=== PATIENT | female | born 1945 | race Caucasian/White ===

== ENCOUNTER 2018-12-09 09:31 | Inpatient (IN) | payer MEDICARE, OTHER ==
[~2018-12-09] VITALS: Ht 150 cm; Wt 57.3 kg
[~2018-12-09 09:31] MED LIST: BACL10 PO; BUPR150ER PO; Bupropion HCl150 M2 PO; CLON1 PO; CLON2 PO; CONEST.625; CONEST.625 PO; DICL.1SO; DICY20 PO; Estrace Vagin42.5 GM VAG; FENT25TP TOP; FENTANYL; FURO20; FURO20 PO; FURO40 PO; GABA600 PO; IBUP800; LEVFLO500 PO; LYSINE; METF500; METF500 PO; NAPR220 PO; NAPR500 PO; OMEP10ER PO; OMEP20ER PO; OXYACE5T PO; OXYB5 PO; OXYC30; OXYC30 PO; OXYC5 PO; Omeprazole20 M1 PO; Oxybutynin Chlo10 MG PO; PAIN PUMP FENTANYL; POTA10T PO; POTCHL10ER; POTCHL10ER PO; PRED10 PO; PREG200 PO; SUDAGEST; Sudogest30 MG PO; VENL37.5 PO
[2018-12-10] MEDS ORDERED: PREG100 PO (09:45)
[2018-12-10] MEDS ORDERED: XVITE TABLET1 EACH PO (09:47)
[2018-12-10] MEDS ORDERED: CALCIUM CIT 311 EACH PO (09:47)
[2018-12-10] MEDS ORDERED: BIOTIN1 MG PO (09:48)
[2018-12-10] MEDS ORDERED: MELA3 PO (09:48)
[2018-12-10] MEDS ORDERED: SIME80CH PO (09:51)
[2018-12-10] MEDS ORDERED: L-Lysine500 M1 PO (09:52)
--- NOTE | 2018-12-10 10:05 | NUR ---
History, Chart, Medications and Allergies reviewed before start of procedure.Patient confirms NPO status and agrees with scheduled surgery. Patient reports completing Chlorhexadine shower X2 prior to admission to hospital.Surgical site prepped with 2% Chlorhexidine cloth wipe.
--- NOTE | 2018-12-10 10:16 | NUR ---
NOSIN NASAL SWABS DONE
--- NOTE | 2018-12-10 16:22 | NUR ---
PT ARRIVED TO THE UNIT AT APPROXIMATELY 1555. PT ALERT AND ORIENTED. PT REPORTED PAIN WELL MANAGED. FAMILY AT THE BEDSIDE. VSS. WILL CONTINUE TO MONITOR.
--- NOTE | 2018-12-10 19:45 | NUR ---
SHIFT SUMMARY PAIN MANAGED WITH TYLENOL AND TORADOL SINCE ARRIVAL TO THE UNIT. PT ALERT AND ORIENTED. PT IS A 1 PERSON MODERATE ASSIST WHEN OOB. PT HAS BEEN ABLE TO VOID POST-OP. VSS. REPORT GIVEN TO CARMINA XIONG.
[2018-12-11 04:17] LABS: BASOPHILS ABSOLUTE AUTO 0.02 K/mm3 (0.00-0.23); BASOPHILS PERCENT AUTO 0 % (0-2); EOSINOPHILS ABSOLUTE AUTO 0.02 K/mm3 (0.00-0.68); EOSINOPHILS PERCENT AUTO 0 % (0-6); Hematocrit 26.7 % (33.0-51.0); Hemoglobin 8.5 g/dL (11.5-16.0); IMMATURE GRAN ABSOLUTE AUTO 0.03 K/mm3 (0.00-0.10); IMMATURE GRAN PERCENT AUTO 0 % (0-1); LYMPHOCYTES ABSOLUTE AUTO 1.87 K/mm3 (0.84-5.20); LYMPHOCYTES PERCENT AUTO 17 % (21-46); MONOCYTES ABSOLUTE AUTO 1.24 K/mm3 (0.16-1.47); MONOCYTES PERCENT AUTO 11 % (4-13); Mean Corpuscular HGB 27.1 pg (26.0-34.0); Mean Corpuscular HGB Conc 31.8 g/dL (31.5-36.5); Mean Corpuscular Volume 85 fL (80-100); Mean Platelet Volume 9.5 fL (9.1-12.4); NEUTROPHILS ABSOLUTE AUTO 7.81 K/mm3 (1.96-9.15); NEUTROPHILS PERCENT AUTO 71 % (41-73); Platelet Count 305 K/mm3 (150-400); RDW Coefficient Variation 15.9 % (11.7-14.2); Red Blood Cell Count 3.14 M/mm3 (3.80-5.20); White Blood Cell Count 10.99 K/mm3 (4.00-11.30)
[2018-12-11 04:29] LABS: Anion Gap 5 mmol/L (6-16); Blood Urea Nitrogen 14 mg/dL (8-24); Bun/Creatinine Ratio 23.1 (12.0-20.0); CO2, Blood 30 mmol/L (21-32); Calcium, Blood 8.1 mg/dL (8.5-10.1); Chloride, Blood 104 mmol/L (98-108); Creatinine, Blood 0.61 mg/dL (0.40-1.00); Glomerular Filtration Rate >60 (60-); Glucose, Blood 113 mg/dL (70-99); Magnesium, Blood 1.8 mg/dL (1.6-2.4); Potassium, Blood 4.4 mmol/L (3.5-5.5); Sodium, Blood 139 mmol/L (136-145)
--- NOTE | 2018-12-11 07:49 | NUR ---
SUMMARY: POD [address] DENT[address] VSS, AFEBRILE, ROOM AIR, TOLERATING PO INTAKE WELL, VOIDING DARK YELLOW URINE. ANTICIPATE PT/OT LATER THIS DAY PT IS WC BOUND BASELINE AND LIVES HOME WITH . PAIN WELL CONTROLLED WITH SCHEULED MEDS AND 15MG PRN ROXICODONE X1 THIS SHFT.
--- NOTE | 2018-12-11 13:06 | NUR ---
Upon receiving an admit referral, I visited patient who had her , Rm weiss. Patient is talkative and and tells me about many of the tragedies and triumphs of her life. She spoke of her many surgeries, of heartache and loss and of the wonderful love and ananya she lives in now. Patient also talk about the many miracles she feels she has received in her life. I listened empathically, provided pastoral executive assistant to general counsel and prayer. Patient and Rm thanked me for the visit. I will continue to remain available to patient and family.
--- NOTE | 2018-12-11 13:15 | NUR ---
REPORT GIVEN TO Brandy WHO WILL BE TAKING OVER CARE AT THIS TIME.
[2018-12-11] MEDS ORDERED: OXYC10TA19 PO (16:38)
[2018-12-11] MEDS ORDERED: ASPI325EC PO (17:22)
--- NOTE | 2018-12-11 18:07 | NUR ---
DISCHARGE PT DISCHARGED [facility] FROM UNIT AT APROX 1736. PT GIVEN WRITTEN AND VERBAL DISCHARGE INSTRUCTIONS AND VERBALIZED UNDERSTANDING OF THESE INSTRUCTIONS. IV REMOVED. PT HAD OWN MOTORIZED SCOOTER TO CAR-RN ASSISTED PT INTO VEHICLE.
== END 2018-12-11 17:46 | disposition home or self-care (01) | DRG 470 ==
LOC: SURS 12-10 09:02 → PRE IP 12-10 10:40 → SURS 12-10 15:48
PROVIDERS: ADMIT Orthopaedic Surgery
PROC: 0SR902A Replacement of Right Hip Joint with Metal on Polyethylene Synthetic Substitute, Uncemented, Open Approach (ICD-10-PCS; principal; 2018-12-10 10:40)
DX: M16.11 Unilateral primary osteoarthritis, right hip (principal); E11.42 Type 2 diabetes mellitus with diabetic polyneuropathy; Q65.89 Other specified congenital deformities of hip; Z88.5 Allergy status to narcotic agent; Z88.0 Allergy status to penicillin; Z88.8 Allergy status to other drugs, medicaments and biological substances
CPT/HCPCS: 36415; 72170; 80048; 82947; 83735; 85025; 86850; 86900; 86901; 88300; 97110; 97116; 97161; 97165; 97530; 97535; C1713; C1776; J0171; J0690; J0735; J1100; J1885; J2250; J2405; J2704; J2710; J2795; J3010; J7120

== ENCOUNTER 2020-12-31 11:37 | Emergency (ER) | payer MEDICARE, OTHER ==
[~2020-12-31 11:37] MED LIST changes: +ASPI325EC PO; +BIOTIN1 MG PO; +CALCIUM CIT 311 EACH PO; +L-Lysine500 M1 PO; +MELA3 PO; +OXYC10TA19 PO; +PREG100 PO; +SIME80CH PO; +XVITE TABLET1 EACH PO
== END 2020-12-31 14:10 | disposition home or self-care (01) ==
LOC: ER 11:37
DX: U07.1 COVID-19 (principal); E11.40 Type 2 diabetes mellitus with diabetic neuropathy, unspecified; Z79.84 Long term (current) use of oral hypoglycemic drugs; Z79.899 Other long term (current) drug therapy; Z79.82 Long term (current) use of aspirin; Z87.891 Personal history of nicotine dependence
CPT/HCPCS: 99283-25; M0243; Q0243

== ENCOUNTER 2021-05-19 09:39 | Day surgery (SDC) | payer MEDICARE, OTHER ==
[~2021-05-19] VITALS: Ht 149.9 cm; Wt 60.4 kg
--- NOTE | 2021-05-19 10:58 | NUR ---
05/19/21 1057 Chyna Bond CALL LIGHT WITHIN REACH. ELISABETH AT 1047 GUTIERREZ AT 1050
== END 2021-05-19 12:20 | disposition home or self-care (01) ==
LOC: ORSCSDS 09:39
PROVIDERS: Ophthalmology
PROC: 08RJ3JZ Replacement of Right Lens with Synthetic Substitute, Percutaneous Approach (ICD-10-PCS; principal; 2021-05-19 11:00)
DX: H25.11 Age-related nuclear cataract, right eye (principal); E11.9 Type 2 diabetes mellitus without complications; Z87.891 Personal history of nicotine dependence; Z79.82 Long term (current) use of aspirin; Z79.899 Other long term (current) drug therapy
CPT/HCPCS: A9270; J2001; J2250; J3010; J3301; J7040; V2632

== ENCOUNTER 2021-06-30 10:58 | Day surgery (SDC) | payer MEDICARE, OTHER ==
[~2021-06-30] VITALS: Ht 149.9 cm; Wt 61.1 kg
--- NOTE | 2021-06-30 13:11 | NUR ---
06/30/21 1311 Nimisha Augustin TETRACAINE AND PLEDGET PLACED IN LEFT EYE BY [email or web address].G
== END 2021-06-30 14:24 | disposition home or self-care (01) ==
LOC: ORSCSDS 10:58
PROVIDERS: Ophthalmology
PROC: 08RK3JZ Replacement of Left Lens with Synthetic Substitute, Percutaneous Approach (ICD-10-PCS; principal; 2021-06-30 14:15)
DX: H25.12 Age-related nuclear cataract, left eye (principal); Z87.891 Personal history of nicotine dependence; K21.9 Gastro-esophageal reflux disease without esophagitis; E11.9 Type 2 diabetes mellitus without complications; Z79.899 Other long term (current) drug therapy
CPT/HCPCS: 82947; J2001; J2250; J3010; J3301; J7040; V2632

== ENCOUNTER → 2021-08-17 | Outpatient (CLI) | payer MEDICARE, OTHER | END | disposition home or self-care (01) | LOC: LAB SHORT 09:14 | DX: L60.2 Onychogryphosis (principal); B35.1 Tinea unguium | CPT/HCPCS: 88305; 88312 ==

== ENCOUNTER 2022-11-29 01:14 | Day surgery (SDC) | payer MEDICARE, OTHER | END 2022-11-29 23:20 | disposition home or self-care (01) | LOC: WOUND 01:14 | DX: T85.738A Infection and inflammatory reaction due to other nervous system device, implant or graft, initial encounter (principal); S31.101D Unspecified open wound of abdominal wall, left upper quadrant without penetration into peritoneal cavity, subsequent encounter | CPT/HCPCS: G0463 ==

== ENCOUNTER 2022-12-01 03:02 | Day surgery (SDC) | payer MEDICARE, OTHER | END 2022-12-01 22:51 | disposition home or self-care (01) | LOC: WOUND 03:02 | DX: T85.738A Infection and inflammatory reaction due to other nervous system device, implant or graft, initial encounter (principal); S31.101D Unspecified open wound of abdominal wall, left upper quadrant without penetration into peritoneal cavity, subsequent encounter | CPT/HCPCS: G0463 ==

== ENCOUNTER 2022-12-04 02:29 | Day surgery (SDC) | payer MEDICARE, OTHER | END 2022-12-04 23:03 | disposition home or self-care (01) | LOC: WOUND 02:29 | DX: T85.738A Infection and inflammatory reaction due to other nervous system device, implant or graft, initial encounter (principal); S31.101D Unspecified open wound of abdominal wall, left upper quadrant without penetration into peritoneal cavity, subsequent encounter | CPT/HCPCS: A9270; G0463 ==

== ENCOUNTER 2022-12-11 02:11 | Day surgery (SDC) | payer MEDICARE, OTHER | END 2022-12-11 22:44 | disposition home or self-care (01) | LOC: WOUND 02:11 | DX: T85.738A Infection and inflammatory reaction due to other nervous system device, implant or graft, initial encounter (principal); S31.101D Unspecified open wound of abdominal wall, left upper quadrant without penetration into peritoneal cavity, subsequent encounter | CPT/HCPCS: G0463 ==

== ENCOUNTER 2022-12-18 02:24 | Day surgery (SDC) | payer MEDICARE, OTHER | END 2022-12-18 23:02 | disposition home or self-care (01) | LOC: WOUND 02:24 | DX: T85.738A Infection and inflammatory reaction due to other nervous system device, implant or graft, initial encounter (principal); S31.101D Unspecified open wound of abdominal wall, left upper quadrant without penetration into peritoneal cavity, subsequent encounter | CPT/HCPCS: A9270 ==

== ENCOUNTER 2022-12-25 00:53 | Day surgery (SDC) | payer MEDICARE, OTHER | END 2022-12-26 22:36 | disposition home or self-care (01) | LOC: WOUND 00:53 | DX: T81.89XA Other complications of procedures, not elsewhere classified, initial encounter (principal); S81.802A Unspecified open wound, left lower leg, initial encounter; I87.2 Venous insufficiency (chronic) (peripheral); L97.822 Non-pressure chronic ulcer of other part of left lower leg with fat layer exposed; E11.622 Type 2 diabetes mellitus with other skin ulcer; E11.51 Type 2 diabetes mellitus with diabetic peripheral angiopathy without gangrene; Y83.8 Other surgical procedures as the cause of abnormal reaction of the patient, or of later complication, without mention of misadventure at the time of the procedure; X58.XXXA Exposure to other specified factors, initial encounter | CPT/HCPCS: A9270; G0463 ==

== ENCOUNTER → 2022-12-29 | Outpatient (CLI) | payer MEDICARE, OTHER | LOC: LAB SHORT 13:00 → LAB 13:00 | DX: L08.9 Local infection of the skin and subcutaneous tissue, unspecified (principal) | CPT/HCPCS: 87070; 87205 ==

== ENCOUNTER 2023-01-01 01:24 | Day surgery (SDC) | payer MEDICARE, OTHER | END 2023-01-01 22:57 | disposition home or self-care (01) | LOC: WOUND 01:24 | DX: E11.622 Type 2 diabetes mellitus with other skin ulcer (principal); L97.922 Non-pressure chronic ulcer of unspecified part of left lower leg with fat layer exposed; S31.101A Unspecified open wound of abdominal wall, left upper quadrant without penetration into peritoneal cavity, initial encounter; I87.2 Venous insufficiency (chronic) (peripheral); X58.XXXA Exposure to other specified factors, initial encounter | CPT/HCPCS: A9270 ==

== ENCOUNTER 2023-01-15 01:31 | Day surgery (SDC) | payer MEDICARE, OTHER | END 2023-01-15 22:51 | disposition home or self-care (01) | LOC: WOUND 01:31 | DX: E11.622 Type 2 diabetes mellitus with other skin ulcer (principal); L97.822 Non-pressure chronic ulcer of other part of left lower leg with fat layer exposed; S31.101D Unspecified open wound of abdominal wall, left upper quadrant without penetration into peritoneal cavity, subsequent encounter; X58.XXXD Exposure to other specified factors, subsequent encounter; T85.738A Infection and inflammatory reaction due to other nervous system device, implant or graft, initial encounter; Y83.8 Other surgical procedures as the cause of abnormal reaction of the patient, or of later complication, without mention of misadventure at the time of the procedure; I87.2 Venous insufficiency (chronic) (peripheral); E11.51 Type 2 diabetes mellitus with diabetic peripheral angiopathy without gangrene | CPT/HCPCS: A9270; G0463 ==

== ENCOUNTER 2023-01-22 01:51 | Day surgery (SDC) | payer MEDICARE, OTHER | END 2023-01-22 23:04 | disposition home or self-care (01) | LOC: WOUND 01:51 | DX: E11.622 Type 2 diabetes mellitus with other skin ulcer (principal); L97.822 Non-pressure chronic ulcer of other part of left lower leg with fat layer exposed; S31.101D Unspecified open wound of abdominal wall, left upper quadrant without penetration into peritoneal cavity, subsequent encounter; T85.738A Infection and inflammatory reaction due to other nervous system device, implant or graft, initial encounter; I87.2 Venous insufficiency (chronic) (peripheral); E11.51 Type 2 diabetes mellitus with diabetic peripheral angiopathy without gangrene | CPT/HCPCS: A9270; G0463 ==

== ENCOUNTER 2023-02-05 00:39 | Day surgery (SDC) | payer MEDICARE, OTHER | END 2023-02-05 23:01 | disposition home or self-care (01) | LOC: WOUND 00:39 | DX: E11.622 Type 2 diabetes mellitus with other skin ulcer (principal); L97.822 Non-pressure chronic ulcer of other part of left lower leg with fat layer exposed; S31.101D Unspecified open wound of abdominal wall, left upper quadrant without penetration into peritoneal cavity, subsequent encounter; X58.XXXD Exposure to other specified factors, subsequent encounter; T85.738A Infection and inflammatory reaction due to other nervous system device, implant or graft, initial encounter; I87.2 Venous insufficiency (chronic) (peripheral); E11.51 Type 2 diabetes mellitus with diabetic peripheral angiopathy without gangrene ==

== ENCOUNTER 2023-02-13 08:59 | Day surgery (SDC) | payer MEDICARE, OTHER | END 2023-02-13 22:57 | disposition home or self-care (01) | LOC: WOUND 08:59 | DX: E11.622 Type 2 diabetes mellitus with other skin ulcer (principal); L97.822 Non-pressure chronic ulcer of other part of left lower leg with fat layer exposed; S31.101D Unspecified open wound of abdominal wall, left upper quadrant without penetration into peritoneal cavity, subsequent encounter; T85.738A Infection and inflammatory reaction due to other nervous system device, implant or graft, initial encounter; I87.2 Venous insufficiency (chronic) (peripheral); I73.9 Peripheral vascular disease, unspecified; X58.XXXD Exposure to other specified factors, subsequent encounter ==

== ENCOUNTER 2023-02-19 02:04 | Day surgery (SDC) | payer MEDICARE, OTHER | END 2023-02-19 22:55 | disposition home or self-care (01) | LOC: WOUND 02:04 | DX: E11.622 Type 2 diabetes mellitus with other skin ulcer (principal); T81.31XD Disruption of external operation (surgical) wound, not elsewhere classified, subsequent encounter; T85.738A Infection and inflammatory reaction due to other nervous system device, implant or graft, initial encounter; L97.822 Non-pressure chronic ulcer of other part of left lower leg with fat layer exposed; I87.2 Venous insufficiency (chronic) (peripheral); I73.9 Peripheral vascular disease, unspecified; Y83.8 Other surgical procedures as the cause of abnormal reaction of the patient, or of later complication, without mention of misadventure at the time of the procedure | CPT/HCPCS: A9270 ==

== ENCOUNTER 2023-02-26 03:07 | Day surgery (SDC) | payer MEDICARE, OTHER | END 2023-02-27 22:50 | disposition home or self-care (01) | LOC: WOUND 03:07 | DX: E11.622 Type 2 diabetes mellitus with other skin ulcer (principal); L97.822 Non-pressure chronic ulcer of other part of left lower leg with fat layer exposed; S31.101D Unspecified open wound of abdominal wall, left upper quadrant without penetration into peritoneal cavity, subsequent encounter; T85.738A Infection and inflammatory reaction due to other nervous system device, implant or graft, initial encounter; I87.2 Venous insufficiency (chronic) (peripheral); E11.51 Type 2 diabetes mellitus with diabetic peripheral angiopathy without gangrene | CPT/HCPCS: A9270 ==

== ENCOUNTER 2023-03-05 02:18 | Day surgery (SDC) | payer MEDICARE, OTHER | END 2023-03-05 22:53 | disposition home or self-care (01) | LOC: WOUND 02:18 | DX: E11.622 Type 2 diabetes mellitus with other skin ulcer (principal); L97.822 Non-pressure chronic ulcer of other part of left lower leg with fat layer exposed; E11.51 Type 2 diabetes mellitus with diabetic peripheral angiopathy without gangrene; I87.2 Venous insufficiency (chronic) (peripheral); T81.30XD Disruption of wound, unspecified, subsequent encounter; T85.738A Infection and inflammatory reaction due to other nervous system device, implant or graft, initial encounter; Y83.8 Other surgical procedures as the cause of abnormal reaction of the patient, or of later complication, without mention of misadventure at the time of the procedure ==

== ENCOUNTER 2023-03-12 03:01 | Day surgery (SDC) | payer MEDICARE, OTHER | END 2023-03-12 22:44 | disposition home or self-care (01) | LOC: WOUND 03:01 | DX: T85.738A Infection and inflammatory reaction due to other nervous system device, implant or graft, initial encounter (principal); I87.2 Venous insufficiency (chronic) (peripheral); S31.101D Unspecified open wound of abdominal wall, left upper quadrant without penetration into peritoneal cavity, subsequent encounter; E11.622 Type 2 diabetes mellitus with other skin ulcer; E11.51 Type 2 diabetes mellitus with diabetic peripheral angiopathy without gangrene ==

== ENCOUNTER 2023-03-19 00:48 | Day surgery (SDC) | payer MEDICARE, OTHER | END 2023-03-19 22:53 | disposition home or self-care (01) | LOC: WOUND 00:48 | DX: S31.101D Unspecified open wound of abdominal wall, left upper quadrant without penetration into peritoneal cavity, subsequent encounter (principal); X58.XXXD Exposure to other specified factors, subsequent encounter; E11.622 Type 2 diabetes mellitus with other skin ulcer; L97.822 Non-pressure chronic ulcer of other part of left lower leg with fat layer exposed; T85.738A Infection and inflammatory reaction due to other nervous system device, implant or graft, initial encounter; I87.2 Venous insufficiency (chronic) (peripheral); E11.51 Type 2 diabetes mellitus with diabetic peripheral angiopathy without gangrene ==

== ENCOUNTER 2023-03-26 02:55 | Day surgery (SDC) | payer MEDICARE, OTHER | END 2023-03-26 23:05 | disposition home or self-care (01) | LOC: WOUND 02:55 | DX: T81.31XD Disruption of external operation (surgical) wound, not elsewhere classified, subsequent encounter (principal); T85.738A Infection and inflammatory reaction due to other nervous system device, implant or graft, initial encounter; I87.2 Venous insufficiency (chronic) (peripheral); L97.822 Non-pressure chronic ulcer of other part of left lower leg with fat layer exposed; E11.622 Type 2 diabetes mellitus with other skin ulcer; Y83.8 Other surgical procedures as the cause of abnormal reaction of the patient, or of later complication, without mention of misadventure at the time of the procedure; I73.9 Peripheral vascular disease, unspecified ==

== ENCOUNTER 2023-04-02 03:06 | Day surgery (SDC) | payer MEDICARE, OTHER | END 2023-04-02 23:05 | disposition home or self-care (01) | LOC: WOUND 03:06 | DX: T85.738A Infection and inflammatory reaction due to other nervous system device, implant or graft, initial encounter (principal); S31.101D Unspecified open wound of abdominal wall, left upper quadrant without penetration into peritoneal cavity, subsequent encounter; I87.2 Venous insufficiency (chronic) (peripheral); L97.822 Non-pressure chronic ulcer of other part of left lower leg with fat layer exposed; E11.622 Type 2 diabetes mellitus with other skin ulcer; E11.51 Type 2 diabetes mellitus with diabetic peripheral angiopathy without gangrene | CPT/HCPCS: A9270; G0463 ==

== ENCOUNTER 2023-04-09 03:57 | Day surgery (SDC) | payer MEDICARE, OTHER | END 2023-04-09 22:53 | disposition home or self-care (01) | LOC: WOUND 03:57 | DX: S31.101D Unspecified open wound of abdominal wall, left upper quadrant without penetration into peritoneal cavity, subsequent encounter (principal); I87.2 Venous insufficiency (chronic) (peripheral); L97.822 Non-pressure chronic ulcer of other part of left lower leg with fat layer exposed; E11.622 Type 2 diabetes mellitus with other skin ulcer; E11.51 Type 2 diabetes mellitus with diabetic peripheral angiopathy without gangrene | CPT/HCPCS: A9270; G0463 ==

== ENCOUNTER 2023-04-16 04:38 | Day surgery (SDC) | payer MEDICARE, OTHER | END 2023-04-16 23:13 | disposition home or self-care (01) | LOC: WOUND 04:38 | DX: S31.101D Unspecified open wound of abdominal wall, left upper quadrant without penetration into peritoneal cavity, subsequent encounter (principal); I87.2 Venous insufficiency (chronic) (peripheral); E11.622 Type 2 diabetes mellitus with other skin ulcer; L97.822 Non-pressure chronic ulcer of other part of left lower leg with fat layer exposed; E11.51 Type 2 diabetes mellitus with diabetic peripheral angiopathy without gangrene | CPT/HCPCS: A9270; G0463 ==

== ENCOUNTER 2023-04-23 02:23 | Day surgery (SDC) | payer MEDICARE, OTHER | END 2023-04-23 22:57 | disposition home or self-care (01) | LOC: WOUND 02:23 | DX: T81.31XD Disruption of external operation (surgical) wound, not elsewhere classified, subsequent encounter (principal); T85.738A Infection and inflammatory reaction due to other nervous system device, implant or graft, initial encounter; I87.2 Venous insufficiency (chronic) (peripheral); E11.51 Type 2 diabetes mellitus with diabetic peripheral angiopathy without gangrene; E11.622 Type 2 diabetes mellitus with other skin ulcer; L97.822 Non-pressure chronic ulcer of other part of left lower leg with fat layer exposed; Y83.8 Other surgical procedures as the cause of abnormal reaction of the patient, or of later complication, without mention of misadventure at the time of the procedure | CPT/HCPCS: A9270 ==

== ENCOUNTER 2023-05-02 05:18 | Day surgery (SDC) | payer MEDICARE, OTHER | END 2023-05-02 22:59 | disposition home or self-care (01) | LOC: WOUND 05:18 | DX: S31.101D Unspecified open wound of abdominal wall, left upper quadrant without penetration into peritoneal cavity, subsequent encounter (principal); T85.73 Infection and inflammatory reaction due to nervous system devices, implants and graft; I87.2 Venous insufficiency (chronic) (peripheral); L97.822 Non-pressure chronic ulcer of other part of left lower leg with fat layer exposed; E11.622 Type 2 diabetes mellitus with other skin ulcer; E11.51 Type 2 diabetes mellitus with diabetic peripheral angiopathy without gangrene | CPT/HCPCS: G0463 ==

== ENCOUNTER 2023-05-10 05:01 | Day surgery (SDC) | payer MEDICARE, OTHER | END 2023-05-10 22:57 | disposition home or self-care (01) | LOC: WOUND 05:01 | DX: S31.101A Unspecified open wound of abdominal wall, left upper quadrant without penetration into peritoneal cavity, initial encounter (principal); X58.XXXA Exposure to other specified factors, initial encounter | CPT/HCPCS: G0463 ==

== ENCOUNTER 2023-05-14 05:01 | Day surgery (SDC) | payer MEDICARE, OTHER | END 2023-05-14 22:45 | disposition home or self-care (01) | LOC: WOUND 05:01 | DX: T81.31XD Disruption of external operation (surgical) wound, not elsewhere classified, subsequent encounter (principal); S31.101D Unspecified open wound of abdominal wall, left upper quadrant without penetration into peritoneal cavity, subsequent encounter; T85.738A Infection and inflammatory reaction due to other nervous system device, implant or graft, initial encounter; I87.2 Venous insufficiency (chronic) (peripheral); E11.622 Type 2 diabetes mellitus with other skin ulcer; L97.822 Non-pressure chronic ulcer of other part of left lower leg with fat layer exposed; E11.51 Type 2 diabetes mellitus with diabetic peripheral angiopathy without gangrene; Y83.8 Other surgical procedures as the cause of abnormal reaction of the patient, or of later complication, without mention of misadventure at the time of the procedure ==

== ENCOUNTER 2023-05-21 03:45 | Day surgery (SDC) | payer MEDICARE, OTHER | END 2023-05-21 23:18 | disposition home or self-care (01) | LOC: WOUND 03:45 | DX: S31.101D Unspecified open wound of abdominal wall, left upper quadrant without penetration into peritoneal cavity, subsequent encounter (principal); X58.XXXD Exposure to other specified factors, subsequent encounter; T85.738A Infection and inflammatory reaction due to other nervous system device, implant or graft, initial encounter; Y83.8 Other surgical procedures as the cause of abnormal reaction of the patient, or of later complication, without mention of misadventure at the time of the procedure; I87.2 Venous insufficiency (chronic) (peripheral); L97.822 Non-pressure chronic ulcer of other part of left lower leg with fat layer exposed; E11.622 Type 2 diabetes mellitus with other skin ulcer; E11.51 Type 2 diabetes mellitus with diabetic peripheral angiopathy without gangrene | CPT/HCPCS: A9270 ==

== ENCOUNTER 2023-05-31 04:49 | Day surgery (SDC) | payer MEDICARE, OTHER | END 2023-05-31 23:10 | disposition home or self-care (01) | LOC: WOUND 04:49 | DX: S31.101D Unspecified open wound of abdominal wall, left upper quadrant without penetration into peritoneal cavity, subsequent encounter (principal); X58.XXXD Exposure to other specified factors, subsequent encounter; T85.738A Infection and inflammatory reaction due to other nervous system device, implant or graft, initial encounter; I87.2 Venous insufficiency (chronic) (peripheral); E11.622 Type 2 diabetes mellitus with other skin ulcer; L97.822 Non-pressure chronic ulcer of other part of left lower leg with fat layer exposed; E11.51 Type 2 diabetes mellitus with diabetic peripheral angiopathy without gangrene | CPT/HCPCS: G0463 ==

== ENCOUNTER 2023-06-04 03:24 | Day surgery (SDC) | payer MEDICARE, OTHER | END 2023-06-04 23:54 | disposition home or self-care (01) | LOC: WOUND 03:24 | DX: S31.101D Unspecified open wound of abdominal wall, left upper quadrant without penetration into peritoneal cavity, subsequent encounter (principal); T85.73 Infection and inflammatory reaction due to nervous system devices, implants and graft; I87.2 Venous insufficiency (chronic) (peripheral); L97.822 Non-pressure chronic ulcer of other part of left lower leg with fat layer exposed; E11.622 Type 2 diabetes mellitus with other skin ulcer; E11.51 Type 2 diabetes mellitus with diabetic peripheral angiopathy without gangrene | CPT/HCPCS: A9270; G0463 ==

== ENCOUNTER → 2023-06-05 | Outpatient (CLI) | payer MEDICARE, OTHER | LOC: LAB SHORT 15:11 → PLD 15:11 | DX: D04.39 Carcinoma in situ of skin of other parts of face (principal) | CPT/HCPCS: 88305 ==

== ENCOUNTER 2023-06-11 02:21 | Day surgery (SDC) | payer MEDICARE, OTHER | END 2023-06-11 23:09 | disposition home or self-care (01) | LOC: WOUND 02:21 | DX: T81.31XD Disruption of external operation (surgical) wound, not elsewhere classified, subsequent encounter (principal); E11.622 Type 2 diabetes mellitus with other skin ulcer; L97.822 Non-pressure chronic ulcer of other part of left lower leg with fat layer exposed; E11.51 Type 2 diabetes mellitus with diabetic peripheral angiopathy without gangrene; S31.101D Unspecified open wound of abdominal wall, left upper quadrant without penetration into peritoneal cavity, subsequent encounter; I87.2 Venous insufficiency (chronic) (peripheral); T85.738A Infection and inflammatory reaction due to other nervous system device, implant or graft, initial encounter; X58.XXXD Exposure to other specified factors, subsequent encounter; Y83.8 Other surgical procedures as the cause of abnormal reaction of the patient, or of later complication, without mention of misadventure at the time of the procedure | CPT/HCPCS: A9270 ==

== ENCOUNTER 2023-06-18 00:26 | Day surgery (SDC) | payer MEDICARE, OTHER ==
[2023-06-18] MEDS ORDERED: Lidocaine HCl 4% Cream 5 GM ONE (15:11)
== END 2023-06-18 23:52 | disposition home or self-care (01) ==
LOC: WOUND 00:26
DX: T81.31XD Disruption of external operation (surgical) wound, not elsewhere classified, subsequent encounter (principal); E11.622 Type 2 diabetes mellitus with other skin ulcer; L97.822 Non-pressure chronic ulcer of other part of left lower leg with fat layer exposed; E11.51 Type 2 diabetes mellitus with diabetic peripheral angiopathy without gangrene; S31.101D Unspecified open wound of abdominal wall, left upper quadrant without penetration into peritoneal cavity, subsequent encounter; T85.738A Infection and inflammatory reaction due to other nervous system device, implant or graft, initial encounter; I87.2 Venous insufficiency (chronic) (peripheral); X58.XXXD Exposure to other specified factors, subsequent encounter; Y83.8 Other surgical procedures as the cause of abnormal reaction of the patient, or of later complication, without mention of misadventure at the time of the procedure
CPT/HCPCS: A6213; A9270; G0463

== ENCOUNTER 2023-06-25 08:00 | Day surgery (SDC) | payer MEDICARE, OTHER ==
[2023-06-25] MEDS ORDERED: Triamcinolone Acet 0.1% Cream 15 gm ONE (15:36)
[2023-06-25] MEDS ORDERED: Lidocaine HCl 4% Cream 5 GM ONE (15:36)
== END 2023-06-25 22:47 | disposition home or self-care (01) ==
LOC: WOUND 08:00
DX: S31.101D Unspecified open wound of abdominal wall, left upper quadrant without penetration into peritoneal cavity, subsequent encounter (principal); X58.XXXD Exposure to other specified factors, subsequent encounter; T85.738A Infection and inflammatory reaction due to other nervous system device, implant or graft, initial encounter; E11.622 Type 2 diabetes mellitus with other skin ulcer; L97.822 Non-pressure chronic ulcer of other part of left lower leg with fat layer exposed; I87.2 Venous insufficiency (chronic) (peripheral); E11.51 Type 2 diabetes mellitus with diabetic peripheral angiopathy without gangrene
CPT/HCPCS: A6213; A9270; G0463

== ENCOUNTER 2023-09-03 04:38 | Day surgery (SDC) | payer MEDICARE, OTHER ==
[2023-09-03] MEDS ORDERED: Lidocaine HCl 4% Cream 5 GM ONE (13:05)
== END 2023-09-03 23:20 | disposition home or self-care (01) ==
LOC: WOUND 04:38
DX: T81.31XD Disruption of external operation (surgical) wound, not elsewhere classified, subsequent encounter (principal); T85.73 Infection and inflammatory reaction due to nervous system devices, implants and graft; I87.2 Venous insufficiency (chronic) (peripheral); L97.822 Non-pressure chronic ulcer of other part of left lower leg with fat layer exposed; E11.622 Type 2 diabetes mellitus with other skin ulcer; E11.51 Type 2 diabetes mellitus with diabetic peripheral angiopathy without gangrene; Y83.8 Other surgical procedures as the cause of abnormal reaction of the patient, or of later complication, without mention of misadventure at the time of the procedure
CPT/HCPCS: A6213; A9270

== ENCOUNTER 2023-09-17 04:23 | Day surgery (SDC) | payer MEDICARE, OTHER | END 2023-09-17 22:55 | disposition home or self-care (01) | LOC: WOUND 04:23 | DX: S31.101D Unspecified open wound of abdominal wall, left upper quadrant without penetration into peritoneal cavity, subsequent encounter (principal); X58.XXXD Exposure to other specified factors, subsequent encounter; E11.622 Type 2 diabetes mellitus with other skin ulcer; L97.822 Non-pressure chronic ulcer of other part of left lower leg with fat layer exposed; T85.738A Infection and inflammatory reaction due to other nervous system device, implant or graft, initial encounter; I87.2 Venous insufficiency (chronic) (peripheral); E11.51 Type 2 diabetes mellitus with diabetic peripheral angiopathy without gangrene ==

== ENCOUNTER 2023-10-31 04:02 | Day surgery (SDC) | payer MEDICARE, OTHER ==
[2023-10-31] MEDS ORDERED: Lidocaine HCl 4% Cream 5 GM ONE (15:15)
== END 2023-10-31 22:53 | disposition home or self-care (01) ==
LOC: WOUND 04:02
DX: T81.31XD Disruption of external operation (surgical) wound, not elsewhere classified, subsequent encounter (principal); T85.738A Infection and inflammatory reaction due to other nervous system device, implant or graft, initial encounter; I87.2 Venous insufficiency (chronic) (peripheral); L97.822 Non-pressure chronic ulcer of other part of left lower leg with fat layer exposed; E11.622 Type 2 diabetes mellitus with other skin ulcer; E11.51 Type 2 diabetes mellitus with diabetic peripheral angiopathy without gangrene; X58.XXXA Exposure to other specified factors, initial encounter; Y83.8 Other surgical procedures as the cause of abnormal reaction of the patient, or of later complication, without mention of misadventure at the time of the procedure
CPT/HCPCS: A6213; A9270; G0463

== ENCOUNTER 2023-11-05 02:32 | Day surgery (SDC) | payer MEDICARE, OTHER ==
[2023-11-05] MEDS ORDERED: Lidocaine HCl 4% Cream 5 GM ONE (12:51)
== END 2023-11-05 23:38 | disposition home or self-care (01) ==
LOC: WOUND 02:32
DX: T81.31XA Disruption of external operation (surgical) wound, not elsewhere classified, initial encounter (principal); T85.738A Infection and inflammatory reaction due to other nervous system device, implant or graft, initial encounter; S31.101D Unspecified open wound of abdominal wall, left upper quadrant without penetration into peritoneal cavity, subsequent encounter; I87.2 Venous insufficiency (chronic) (peripheral); E11.51 Type 2 diabetes mellitus with diabetic peripheral angiopathy without gangrene; E11.622 Type 2 diabetes mellitus with other skin ulcer; L97.822 Non-pressure chronic ulcer of other part of left lower leg with fat layer exposed; X58.XXXD Exposure to other specified factors, subsequent encounter; Y83.8 Other surgical procedures as the cause of abnormal reaction of the patient, or of later complication, without mention of misadventure at the time of the procedure
CPT/HCPCS: A6213; A9270

== ENCOUNTER 2023-11-12 02:21 | Day surgery (SDC) | payer MEDICARE, OTHER ==
[2023-11-12] MEDS ORDERED: Lidocaine HCl 4% Cream 5 GM ONE (15:25)
== END 2023-11-12 04:46 | disposition home or self-care (01) ==
LOC: WOUND 02:21
DX: T85.73 Infection and inflammatory reaction due to nervous system devices, implants and graft (principal); E11.9 Type 2 diabetes mellitus without complications
CPT/HCPCS: A6213; A9270; G0463

== ENCOUNTER 2023-11-19 03:31 | Day surgery (SDC) | payer MEDICARE, OTHER ==
[2023-11-19] MEDS ORDERED: Lidocaine HCl 4% Cream 5 GM ONE (15:24)
[2023-11-19] MEDS ORDERED: Triamcinolone Acet 0.1% Cream 15 gm ONE (15:25)
== END 2023-11-19 23:20 | disposition home or self-care (01) ==
LOC: WOUND 03:31
DX: S31.101A Unspecified open wound of abdominal wall, left upper quadrant without penetration into peritoneal cavity, initial encounter (principal); E11.9 Type 2 diabetes mellitus without complications
CPT/HCPCS: A6213; A9270

== ENCOUNTER 2023-12-03 07:10 | Day surgery (SDC) | payer MEDICARE, OTHER ==
[2023-12-03] MEDS ORDERED: Triamcinolone Acet 0.1% Cream 15 gm ONE (15:10)
[2023-12-03] MEDS ORDERED: Lidocaine HCl 4% Cream 5 GM ONE (15:10)
== END 2023-12-04 00:04 | disposition home or self-care (01) ==
LOC: WOUND 07:10
DX: T81.31XA Disruption of external operation (surgical) wound, not elsewhere classified, initial encounter (principal); E11.51 Type 2 diabetes mellitus with diabetic peripheral angiopathy without gangrene; T85.738A Infection and inflammatory reaction due to other nervous system device, implant or graft, initial encounter; I87.2 Venous insufficiency (chronic) (peripheral); L97.822 Non-pressure chronic ulcer of other part of left lower leg with fat layer exposed; E11.622 Type 2 diabetes mellitus with other skin ulcer; Y83.8 Other surgical procedures as the cause of abnormal reaction of the patient, or of later complication, without mention of misadventure at the time of the procedure
CPT/HCPCS: A9270

== ENCOUNTER 2024-01-14 01:57 | Day surgery (SDC) | payer MEDICARE, OTHER ==
[2024-01-14] MEDS ORDERED: Lidocaine HCl 4% Cream 5 GM ONE (15:12)
== END 2024-01-14 23:00 | disposition home or self-care (01) ==
LOC: WOUND 01:57
DX: S31.101A Unspecified open wound of abdominal wall, left upper quadrant without penetration into peritoneal cavity, initial encounter (principal); T85.738A Infection and inflammatory reaction due to other nervous system device, implant or graft, initial encounter; E11.622 Type 2 diabetes mellitus with other skin ulcer; L97.822 Non-pressure chronic ulcer of other part of left lower leg with fat layer exposed; E11.51 Type 2 diabetes mellitus with diabetic peripheral angiopathy without gangrene; I87.2 Venous insufficiency (chronic) (peripheral); X58.XXXA Exposure to other specified factors, initial encounter
CPT/HCPCS: A6213; A9270

== ENCOUNTER 2024-01-28 04:07 | Day surgery (SDC) | payer MEDICARE, OTHER ==
[2024-01-28] MEDS ORDERED: Lidocaine HCl 4% Cream 5 GM ONE (11:30)
[2024-01-28] MEDS ORDERED: Triamcinolone Acet 0.1% Cream 15 gm ONE (11:37)
== END 2024-01-28 23:00 ==
LOC: WOUND 04:07
DX: T81.31XA Disruption of external operation (surgical) wound, not elsewhere classified, initial encounter (principal); T85.738A Infection and inflammatory reaction due to other nervous system device, implant or graft, initial encounter; E11.51 Type 2 diabetes mellitus with diabetic peripheral angiopathy without gangrene; E11.622 Type 2 diabetes mellitus with other skin ulcer; I87.2 Venous insufficiency (chronic) (peripheral); L97.822 Non-pressure chronic ulcer of other part of left lower leg with fat layer exposed; Y83.8 Other surgical procedures as the cause of abnormal reaction of the patient, or of later complication, without mention of misadventure at the time of the procedure
CPT/HCPCS: A6213; A9270

== ENCOUNTER 2024-02-04 04:51 | Day surgery (SDC) | payer MEDICARE, OTHER ==
[2024-02-04] MEDS ORDERED: Lidocaine HCl 4% Cream 5 GM ONE (14:16)
== END 2024-02-05 23:15 | disposition home or self-care (01) ==
LOC: WOUND 04:51
DX: S31.101A Unspecified open wound of abdominal wall, left upper quadrant without penetration into peritoneal cavity, initial encounter (principal); E11.51 Type 2 diabetes mellitus with diabetic peripheral angiopathy without gangrene
CPT/HCPCS: A6213; A9270

== ENCOUNTER 2024-02-11 01:59 | Day surgery (SDC) | payer MEDICARE, OTHER ==
[2024-02-11] MEDS ORDERED: Lidocaine HCl 4% Cream 5 GM ONE (15:13)
[2024-02-11] MEDS ORDERED: Silver Nitr/Potassium Nitrate 1 EA APPL ONE (15:20)
== END 2024-02-11 23:00 | disposition home or self-care (01) ==
LOC: WOUND 01:59
DX: T85.738A Infection and inflammatory reaction due to other nervous system device, implant or graft, initial encounter (principal); S31.101A Unspecified open wound of abdominal wall, left upper quadrant without penetration into peritoneal cavity, initial encounter; I87.2 Venous insufficiency (chronic) (peripheral); E11.622 Type 2 diabetes mellitus with other skin ulcer; L97.822 Non-pressure chronic ulcer of other part of left lower leg with fat layer exposed
CPT/HCPCS: A6196; A9270

== ENCOUNTER → 2024-02-18 | Day surgery (SDC) | payer MEDICARE, OTHER ==
[~2024-02-18] MED LIST changes: +Lidocaine HCl 4% Cream 5 GM ONE; +Triamcinolone Acet 0.1% Cream 15 gm ONE
== END ==
LOC: WOUND 02:18
DX: T81.31XD Disruption of external operation (surgical) wound, not elsewhere classified, subsequent encounter (principal); S31.101D Unspecified open wound of abdominal wall, left upper quadrant without penetration into peritoneal cavity, subsequent encounter; E11.40 Type 2 diabetes mellitus with diabetic neuropathy, unspecified; E11.51 Type 2 diabetes mellitus with diabetic peripheral angiopathy without gangrene
CPT/HCPCS: A6196; A6213; A9270; G0463

== ENCOUNTER 2024-02-25 03:01 | Day surgery (SDC) | payer MEDICARE, OTHER ==
[~2024-02-25 03:01] MED LIST changes: -Lidocaine HCl 4% Cream 5 GM ONE; -Triamcinolone Acet 0.1% Cream 15 gm ONE
== END 2024-02-25 23:00 | disposition home or self-care (01) ==
LOC: WOUND 03:01
DX: T81.31XD Disruption of external operation (surgical) wound, not elsewhere classified, subsequent encounter (principal); E11.51 Type 2 diabetes mellitus with diabetic peripheral angiopathy without gangrene; E11.40 Type 2 diabetes mellitus with diabetic neuropathy, unspecified
CPT/HCPCS: A6196; A6213; G0463

== ENCOUNTER 2024-03-03 02:58 | Day surgery (SDC) | payer MEDICARE, OTHER ==
[2024-03-03] MEDS ORDERED: Lidocaine HCl 4% Cream 5 GM ONE (15:11)
== END 2024-03-04 00:01 | disposition home or self-care (01) ==
LOC: WOUND 02:58
DX: T81.31XA Disruption of external operation (surgical) wound, not elsewhere classified, initial encounter (principal); E11.51 Type 2 diabetes mellitus with diabetic peripheral angiopathy without gangrene; E11.40 Type 2 diabetes mellitus with diabetic neuropathy, unspecified; I87.2 Venous insufficiency (chronic) (peripheral)
CPT/HCPCS: A6196; A6213; A9270

== ENCOUNTER 2024-03-10 02:35 | Day surgery (SDC) | payer MEDICARE, OTHER ==
[2024-03-10] MEDS ORDERED: Lidocaine HCl 4% Cream 5 GM ONE (14:55)
== END 2024-03-11 00:55 | disposition home or self-care (01) ==
LOC: WOUND 02:35
DX: T81.31XA Disruption of external operation (surgical) wound, not elsewhere classified, initial encounter (principal); T85.738A Infection and inflammatory reaction due to other nervous system device, implant or graft, initial encounter; E11.622 Type 2 diabetes mellitus with other skin ulcer; L97.822 Non-pressure chronic ulcer of other part of left lower leg with fat layer exposed; E11.51 Type 2 diabetes mellitus with diabetic peripheral angiopathy without gangrene; I87.2 Venous insufficiency (chronic) (peripheral); S31.101D Unspecified open wound of abdominal wall, left upper quadrant without penetration into peritoneal cavity, subsequent encounter; X58.XXXD Exposure to other specified factors, subsequent encounter; Y83.8 Other surgical procedures as the cause of abnormal reaction of the patient, or of later complication, without mention of misadventure at the time of the procedure
CPT/HCPCS: A6196; A6213; A9270

== ENCOUNTER 2024-03-31 02:50 | Day surgery (SDC) | payer MEDICARE, OTHER ==
[2024-03-31] MEDS ORDERED: Lidocaine HCl 4% Cream 5 GM ONE (15:28)
== END 2024-03-31 23:25 | disposition home or self-care (01) ==
LOC: WOUND 02:50
DX: T81.31XA Disruption of external operation (surgical) wound, not elsewhere classified, initial encounter (principal); E11.51 Type 2 diabetes mellitus with diabetic peripheral angiopathy without gangrene; I87.2 Venous insufficiency (chronic) (peripheral)
CPT/HCPCS: A6196; A6213; A9270

== ENCOUNTER 2024-04-07 01:29 | Day surgery (SDC) | payer MEDICARE, OTHER ==
[2024-04-07] MEDS ORDERED: Lidocaine HCl 4% Cream 5 GM ONE (15:48)
== END 2024-04-07 23:00 | disposition home or self-care (01) ==
LOC: WOUND 01:29
DX: T85.738A Infection and inflammatory reaction due to other nervous system device, implant or graft, initial encounter (principal); S31.101A Unspecified open wound of abdominal wall, left upper quadrant without penetration into peritoneal cavity, initial encounter; I87.2 Venous insufficiency (chronic) (peripheral); E11.622 Type 2 diabetes mellitus with other skin ulcer; L97.822 Non-pressure chronic ulcer of other part of left lower leg with fat layer exposed; E11.51 Type 2 diabetes mellitus with diabetic peripheral angiopathy without gangrene; X58.XXXA Exposure to other specified factors, initial encounter
CPT/HCPCS: A6196; A6213; A9270; G0463

== ENCOUNTER 2024-04-14 05:49 | Day surgery (SDC) | payer MEDICARE, OTHER | END 2024-04-14 23:00 | disposition home or self-care (01) | LOC: WOUND 05:49 | DX: T81.31XA Disruption of external operation (surgical) wound, not elsewhere classified, initial encounter (principal); E11.51 Type 2 diabetes mellitus with diabetic peripheral angiopathy without gangrene; I87.2 Venous insufficiency (chronic) (peripheral) | CPT/HCPCS: A6196; A6213 ==

== ENCOUNTER 2024-04-21 03:25 | Day surgery (SDC) | payer MEDICARE, OTHER ==
[2024-04-21] MEDS ORDERED: Lidocaine HCl 4% Cream 5 GM ONE (15:23)
== END 2024-04-21 23:00 | disposition home or self-care (01) ==
LOC: WOUND 03:25
DX: T81.31XD Disruption of external operation (surgical) wound, not elsewhere classified, subsequent encounter (principal); E11.51 Type 2 diabetes mellitus with diabetic peripheral angiopathy without gangrene; I87.2 Venous insufficiency (chronic) (peripheral)
CPT/HCPCS: A6196; A6213; A9270; G0463

== ENCOUNTER 2024-04-28 04:52 | Day surgery (SDC) | payer MEDICARE, OTHER ==
[2024-04-28] MEDS ORDERED: Lidocaine HCl 4% Cream 5 GM ONE (15:24)
== END 2024-04-30 23:00 | disposition home or self-care (01) ==
LOC: WOUND 04:52
DX: S31.101A Unspecified open wound of abdominal wall, left upper quadrant without penetration into peritoneal cavity, initial encounter (principal); T85.738A Infection and inflammatory reaction due to other nervous system device, implant or graft, initial encounter; I87.2 Venous insufficiency (chronic) (peripheral); L97.822 Non-pressure chronic ulcer of other part of left lower leg with fat layer exposed; E11.622 Type 2 diabetes mellitus with other skin ulcer; E11.51 Type 2 diabetes mellitus with diabetic peripheral angiopathy without gangrene
CPT/HCPCS: A6196; A6213; A9270

== ENCOUNTER 2024-05-05 03:29 | Day surgery (SDC) | payer MEDICARE, OTHER ==
[2024-05-05] MEDS ORDERED: Lidocaine HCl 4% Cream 5 GM ONE (14:55)
== END 2024-05-05 23:00 | disposition home or self-care (01) ==
LOC: WOUND 03:29
DX: T85.738A Infection and inflammatory reaction due to other nervous system device, implant or graft, initial encounter (principal); S31.101A Unspecified open wound of abdominal wall, left upper quadrant without penetration into peritoneal cavity, initial encounter; X58.XXXA Exposure to other specified factors, initial encounter; I87.2 Venous insufficiency (chronic) (peripheral); E11.622 Type 2 diabetes mellitus with other skin ulcer; L97.822 Non-pressure chronic ulcer of other part of left lower leg with fat layer exposed; E11.51 Type 2 diabetes mellitus with diabetic peripheral angiopathy without gangrene
CPT/HCPCS: A6196; A6213; A9270; G0463

== ENCOUNTER 2024-05-13 06:17 | Day surgery (SDC) | payer MEDICARE, OTHER ==
[2024-05-13] MEDS ORDERED: Lidocaine HCl 4% Cream 5 GM ONE (14:50)
== END 2024-05-13 23:00 | disposition home or self-care (01) ==
LOC: WOUND 06:17
DX: T81.31XD Disruption of external operation (surgical) wound, not elsewhere classified, subsequent encounter (principal); T85.73 Infection and inflammatory reaction due to nervous system devices, implants and graft; S31.101D Unspecified open wound of abdominal wall, left upper quadrant without penetration into peritoneal cavity, subsequent encounter; I87.2 Venous insufficiency (chronic) (peripheral); L97.822 Non-pressure chronic ulcer of other part of left lower leg with fat layer exposed; E11.622 Type 2 diabetes mellitus with other skin ulcer; E11.51 Type 2 diabetes mellitus with diabetic peripheral angiopathy without gangrene; X58.XXXD Exposure to other specified factors, subsequent encounter; Y83.8 Other surgical procedures as the cause of abnormal reaction of the patient, or of later complication, without mention of misadventure at the time of the procedure
CPT/HCPCS: A6196; A6213; A9270

== ENCOUNTER 2024-05-19 04:49 | Day surgery (SDC) | payer MEDICARE, OTHER ==
[2024-05-19] MEDS ORDERED: Lidocaine HCl 4% Cream 5 GM ONE (15:24)
== END 2024-05-19 23:00 | disposition home or self-care (01) ==
LOC: WOUND 04:49
DX: T81.31XA Disruption of external operation (surgical) wound, not elsewhere classified, initial encounter (principal); E11.51 Type 2 diabetes mellitus with diabetic peripheral angiopathy without gangrene; I87.2 Venous insufficiency (chronic) (peripheral)
CPT/HCPCS: A6196; A6213; A9270

== ENCOUNTER 2024-05-26 04:23 | Day surgery (SDC) | payer MEDICARE, OTHER ==
[2024-05-26] MEDS ORDERED: Lidocaine HCl 4% Cream 5 GM ONE (15:17)
== END 2024-05-26 23:00 | disposition home or self-care (01) ==
LOC: WOUND 04:23
DX: T81.31XD Disruption of external operation (surgical) wound, not elsewhere classified, subsequent encounter (principal); I87.2 Venous insufficiency (chronic) (peripheral); E11.51 Type 2 diabetes mellitus with diabetic peripheral angiopathy without gangrene
CPT/HCPCS: A6196; A6213; A9270; G0463

== ENCOUNTER 2024-06-02 02:34 | Day surgery (SDC) | payer MEDICARE, OTHER ==
[2024-06-02] MEDS ORDERED: Lidocaine HCl 4% Cream 5 GM ONE (15:08)
== END 2024-06-02 23:00 | disposition home or self-care (01) ==
LOC: WOUND 02:34
DX: T81.31XA Disruption of external operation (surgical) wound, not elsewhere classified, initial encounter (principal); S31.101D Unspecified open wound of abdominal wall, left upper quadrant without penetration into peritoneal cavity, subsequent encounter; T85.738A Infection and inflammatory reaction due to other nervous system device, implant or graft, initial encounter; E11.622 Type 2 diabetes mellitus with other skin ulcer; L97.822 Non-pressure chronic ulcer of other part of left lower leg with fat layer exposed; I87.2 Venous insufficiency (chronic) (peripheral); E11.51 Type 2 diabetes mellitus with diabetic peripheral angiopathy without gangrene; Y83.8 Other surgical procedures as the cause of abnormal reaction of the patient, or of later complication, without mention of misadventure at the time of the procedure; X58.XXXD Exposure to other specified factors, subsequent encounter
CPT/HCPCS: A6196; A6213; A9270

== ENCOUNTER 2024-06-10 02:27 | Day surgery (SDC) | payer MEDICARE, OTHER ==
[2024-06-10] MEDS ORDERED: Lidocaine HCl 4% Cream 5 GM ONE (15:12)
== END 2024-06-10 23:00 | disposition home or self-care (01) ==
LOC: WOUND 02:27
DX: T81.31XD Disruption of external operation (surgical) wound, not elsewhere classified, subsequent encounter (principal); E11.51 Type 2 diabetes mellitus with diabetic peripheral angiopathy without gangrene; I87.2 Venous insufficiency (chronic) (peripheral)
CPT/HCPCS: A6196; A6213; A9270; G0463

== ENCOUNTER 2024-06-16 00:58 | Day surgery (SDC) | payer MEDICARE, OTHER ==
[2024-06-16] MEDS ORDERED: Lidocaine HCl 4% Cream 5 GM ONE (14:26)
== END 2024-06-16 23:00 | disposition home or self-care (01) ==
LOC: WOUND 00:58
DX: T81.31XD Disruption of external operation (surgical) wound, not elsewhere classified, subsequent encounter (principal); E11.51 Type 2 diabetes mellitus with diabetic peripheral angiopathy without gangrene; I87.2 Venous insufficiency (chronic) (peripheral)
CPT/HCPCS: A6196; A6213; A9270; G0463

== ENCOUNTER 2024-06-30 01:14 | Day surgery (SDC) | payer MEDICARE, OTHER | END 2024-06-30 23:00 | disposition home or self-care (01) | LOC: WOUND 01:14 | DX: T81.31XD Disruption of external operation (surgical) wound, not elsewhere classified, subsequent encounter (principal); E11.51 Type 2 diabetes mellitus with diabetic peripheral angiopathy without gangrene; I87.2 Venous insufficiency (chronic) (peripheral) | CPT/HCPCS: A6196; G0463 ==

== ENCOUNTER 2024-07-07 01:39 | Day surgery (SDC) | payer MEDICARE, OTHER | END 2024-07-07 23:00 | disposition home or self-care (01) | LOC: WOUND 01:39 | DX: T81.31XD Disruption of external operation (surgical) wound, not elsewhere classified, subsequent encounter (principal); E11.51 Type 2 diabetes mellitus with diabetic peripheral angiopathy without gangrene; I87.2 Venous insufficiency (chronic) (peripheral) | CPT/HCPCS: A6196; A6213; G0463 ==

== ENCOUNTER 2024-07-14 02:11 | Day surgery (SDC) | payer MEDICARE, OTHER | END 2024-07-14 23:00 | disposition home or self-care (01) | LOC: WOUND 02:11 | DX: T85.738A Infection and inflammatory reaction due to other nervous system device, implant or graft, initial encounter (principal); S31.101A Unspecified open wound of abdominal wall, left upper quadrant without penetration into peritoneal cavity, initial encounter; I87.2 Venous insufficiency (chronic) (peripheral); E11.622 Type 2 diabetes mellitus with other skin ulcer; L97.822 Non-pressure chronic ulcer of other part of left lower leg with fat layer exposed; E11.51 Type 2 diabetes mellitus with diabetic peripheral angiopathy without gangrene | CPT/HCPCS: A6196; A6213; G0463 ==

== ENCOUNTER 2024-07-21 01:59 | Day surgery (SDC) | payer MEDICARE, OTHER | END 2024-07-21 23:25 | disposition home or self-care (01) | LOC: WOUND 01:59 | DX: T81.31XA Disruption of external operation (surgical) wound, not elsewhere classified, initial encounter (principal); E11.51 Type 2 diabetes mellitus with diabetic peripheral angiopathy without gangrene; I87.2 Venous insufficiency (chronic) (peripheral) | CPT/HCPCS: A6196; A6213 ==

== ENCOUNTER 2024-07-28 02:43 | Day surgery (SDC) | payer MEDICARE, OTHER | END 2024-07-28 23:04 | disposition home or self-care (01) | LOC: WOUND 02:43 | DX: T85.738A Infection and inflammatory reaction due to other nervous system device, implant or graft, initial encounter (principal); S31.101A Unspecified open wound of abdominal wall, left upper quadrant without penetration into peritoneal cavity, initial encounter; I87.2 Venous insufficiency (chronic) (peripheral); L97.822 Non-pressure chronic ulcer of other part of left lower leg with fat layer exposed; E11.622 Type 2 diabetes mellitus with other skin ulcer; E11.51 Type 2 diabetes mellitus with diabetic peripheral angiopathy without gangrene | CPT/HCPCS: A6196; A6213; G0463 ==

== ENCOUNTER 2024-08-11 01:29 | Day surgery (SDC) | payer MEDICARE, OTHER | END 2024-08-11 23:00 | disposition home or self-care (01) | LOC: WOUND 01:29 | DX: T81.31XD Disruption of external operation (surgical) wound, not elsewhere classified, subsequent encounter (principal); I87.2 Venous insufficiency (chronic) (peripheral); E11.51 Type 2 diabetes mellitus with diabetic peripheral angiopathy without gangrene | CPT/HCPCS: A6213; G0463 ==

== ENCOUNTER → 2024-08-25 | Day surgery (SDC) | payer MEDICARE, OTHER | LOC: WOUND 13:05 | DX: E11.622 Type 2 diabetes mellitus with other skin ulcer (principal); S31.101D Unspecified open wound of abdominal wall, left upper quadrant without penetration into peritoneal cavity, subsequent encounter; L97.822 Non-pressure chronic ulcer of other part of left lower leg with fat layer exposed; E11.51 Type 2 diabetes mellitus with diabetic peripheral angiopathy without gangrene; T85.738A Infection and inflammatory reaction due to other nervous system device, implant or graft, initial encounter; I87.2 Venous insufficiency (chronic) (peripheral) | CPT/HCPCS: A6196; A6213; G0463 ==

== ENCOUNTER 2024-09-15 04:16 | Day surgery (SDC) | payer MEDICARE, OTHER | END 2024-09-15 23:32 | disposition home or self-care (01) | LOC: WOUND 04:16 | DX: T85.738A Infection and inflammatory reaction due to other nervous system device, implant or graft, initial encounter (principal); E11.622 Type 2 diabetes mellitus with other skin ulcer; L97.822 Non-pressure chronic ulcer of other part of left lower leg with fat layer exposed; S31.101A Unspecified open wound of abdominal wall, left upper quadrant without penetration into peritoneal cavity, initial encounter; I87.2 Venous insufficiency (chronic) (peripheral); E11.51 Type 2 diabetes mellitus with diabetic peripheral angiopathy without gangrene | CPT/HCPCS: A6196; A6213; G0463 ==

== ENCOUNTER 2024-11-10 08:00 | Day surgery (SDC) | payer MEDICARE, OTHER | END 2024-11-10 22:00 | disposition home or self-care (01) | LOC: WOUND 08:00 | DX: E11.622 Type 2 diabetes mellitus with other skin ulcer (principal); L97.822 Non-pressure chronic ulcer of other part of left lower leg with fat layer exposed; L98.492 Non-pressure chronic ulcer of skin of other sites with fat layer exposed; E11.51 Type 2 diabetes mellitus with diabetic peripheral angiopathy without gangrene; T85.738A Infection and inflammatory reaction due to other nervous system device, implant or graft, initial encounter; S31.101D Unspecified open wound of abdominal wall, left upper quadrant without penetration into peritoneal cavity, subsequent encounter; I87.2 Venous insufficiency (chronic) (peripheral) | CPT/HCPCS: A6196; G0463 ==

== ENCOUNTER → 2025-01-17 | Outpatient (CLI) | payer MEDICARE, OTHER ==
[~2025-01-17] MED LIST changes: -BIOTIN1 MG PO; +BUPR100 PO; +FENTANYL1 EA10 TOP; +GLUC500 PO; +MERIBIN5 MG PO; +POTASSIUM99 M3 PO; -PREG100 PO; +PREG50 PO; +ROPI.25 PO; +TRAZ100 PO
== END ==
LOC: LAB SHORT 14:40 → LAB 14:40
DX: L03.116 Cellulitis of left lower limb (principal)
CPT/HCPCS: 87070; 87077; 87186; 87205

== ENCOUNTER 2025-03-27 06:56 | Day surgery (SDC) | payer MEDICARE, OTHER ==
[2025-03-27] VITALS (8 sets, daily range): BP systolic 122–176; BP diastolic 59–71
[~2025-03-27] VITALS: Ht 147.3 cm; Wt 57.9 kg
[~2025-03-27 06:56] MED LIST changes: +PREG300 PO; -PREG50 PO
[2025-03-27] MEDS ORDERED: CeFAZolin Sodium 2,000 MG in NS 100 ML IV SCH (07:05)
[2025-03-27] MEDS ORDERED: BUPR75 PO (07:14)
[2025-03-27] MEDS ORDERED: FentaNYL Citrate 50 MCG/ML 2 ML Injection ONE (07:23)
[2025-03-27] MEDS ORDERED: Ondansetron HCl 2 MG / ML 2ML Vial IV PRN (07:30)
[2025-03-27] MEDS ORDERED: FentaNYL Citrate 50 MCG/ML 2 ML Injection IV PRN ×2 (07:30)
[2025-03-27] MEDS ORDERED: Albuterol 2.5 MG/3 ML VIAL INH PRN (07:30)
[2025-03-27] MEDS ORDERED: HYDROmorphone HCl/Pf 1MG SYR IV PRN (07:30)
[2025-03-27] MEDS ORDERED: Bupivacaine 0.5% HCl 5 MG/ML 30MLVIAL ONE (07:38)
--- NOTE | 2025-03-27 07:44 | NUR ---
Pre-Op teaching done. Pt verbalizes understanding. IN VIA W/C, ABLE TO WALK SHORT DISTNACE. History, Chart, Medications and Allergies reviewed before start of procedure. Patient confirms NPO status and agrees with scheduled surgery. Patient States Post-Procedure ride home has been arranged.
[2025-03-27] MEDS ORDERED: CeFAZolin Sodium 2,000 MG VIAL ONE (07:46)
[2025-03-27] MEDS ORDERED: Dexamethasone Sod Phos 10 MG/ML 1ML VIAL ONE (07:52)
[2025-03-27] MEDS ORDERED: Ondansetron HCl 2 MG / ML 2ML Vial ONE (07:52)
[2025-03-27] MEDS ORDERED: Rocuronium Bromide 10 MG/ML 5ML Injection IV ONE (07:52)
[2025-03-27] MEDS ORDERED: Sugammadex Sodium 200 MG/2ML SDV (100 MG/ML) ONE (08:10)
[2025-03-27] MEDS ORDERED: HYDROcodone 5-APAP 325 TAB PO PRN (09:05)
--- NOTE | 2025-03-27 09:56 | NUR ---
Patient up to Ambulate independently. Gait steady. Discharge instructions reviewed with patient. Patient verbalizes understanding. Copy given to patient to take home, WELL FAMILY. Patient States Post-Procedure ride home has been arranged. Discharged via wheelchair to private car for ride home. PT REPORTS PAIN TOLERABLE. TOLERATING PO. INCISION C/D/I. REPORTS READY TO GO HOME. FAMILY BEEN TO BEDSIDE.
== END 2025-03-27 09:57 | disposition home or self-care (01) ==
LOC: ORSCMMR 06:56 → ORD 08:00 → ORSCMMR 08:00
PROVIDERS: Surgery
PROC: 0JB80ZZ Excision of Abdomen Subcutaneous Tissue and Fascia, Open Approach (ICD-10-PCS; principal; 2025-03-27 08:00)
DX: M79.5 Residual foreign body in soft tissue (principal); T85.9XXA Unspecified complication of internal prosthetic device, implant and graft, initial encounter; E11.9 Type 2 diabetes mellitus without complications; K21.9 Gastro-esophageal reflux disease without esophagitis; F32.A Depression, unspecified; Z79.84 Long term (current) use of oral hypoglycemic drugs; Z79.899 Other long term (current) drug therapy
CPT/HCPCS: 82947; 88305; A9270; J0690; J1100; J2405; J2704; J3010; J7120